=== PATIENT | male | born 1960 | race Hispanic/Latino ===

== ENCOUNTER 2019-01-12 16:16 | Outpatient (CLI) | payer BC ==
--- NOTE | 2019-01-12 17:05 | RAD ---
RIGHT KNEE 4 VIEWS: Date: 01/12/19 HISTORY: Right knee pain. FINDINGS: Degenerative changes are present, manifested by osteophyte formation and joint space narrowing. Chond rocalcinosis is seen. No fracture, dislocation, or bony destruction is identified. IMPRESSION: Right knee osteoarthritis. POS: OFF
--- NOTE | 2019-01-12 17:18 | RAD ---
LEFT KNEE FOUR VIEWS: HISTORY: Pain. COMPARISON: None. FINDINGS: Moderate joint effusion. Large osteophytes at the trochlea. Chondrocalcinosis of both menisci. Mil d medial compartment joint space narrowing. Moderate osteophyte formation, lateral compartment. IMPRESSION: Advanced degenerative changes without acute displaced fracture. POS: DARCIE
== END 2019-01-12 16:17 | disposition home or self-care (01) ==
LOC: RAD-FRANK 16:16
PROVIDERS: ATTEND Internal Medicine
DX: M17.0 Bilateral primary osteoarthritis of knee (principal)

== ENCOUNTER 2020-05-10 12:10 | Emergency (ER) | payer BC, OTHER ==
[2020-05-11 16:08] LABS: SARS-CoV-2 MS2 Positive; SARS-CoV-2 N Gene Negative; SARS-CoV-2 S Gene Negative; SARS-CoV-2 orf1ab Negative
== END 2020-05-10 12:32 | disposition home or self-care (01) ==
LOC: ERS 12:10
DX: Z20.828 Contact with and (suspected) exposure to other viral communicable diseases (principal)
CPT/HCPCS: 87635; 99283; U0003

== ENCOUNTER 2021-05-12 12:54 | Emergency (ER) | payer BC ==
[2021-05-12] MEDS ORDERED: Boostrix 0.5 ML (Tdap) VIAL ONE (13:28)
[2021-05-12] MEDS ORDERED: Lidocaine 1% (PF) 30 ML VIAL ONE (13:28)
[2021-05-12] MEDS ORDERED: Bupivacaine 0.5% 10 ML VIAL ONE (13:47)
== END 2021-05-12 14:57 | disposition home or self-care (01) ==
LOC: ERS 12:54
DX: S61.215A Laceration without foreign body of left ring finger without damage to nail, initial encounter (principal); S61.217A Laceration without foreign body of left little finger without damage to nail, initial encounter; Z23 Encounter for immunization; W29.3XXA Contact with powered garden and outdoor hand tools and machinery, initial encounter
CPT/HCPCS: 12002; 90471; 90715; J2001; J3490